=== PATIENT | female | born 1935 | race Two or more races ===

== ENCOUNTER 2022-06-16 17:33 | Emergency (ER) | payer MEDICARE, OTHER ==
[~2022-06-16] VITALS: Ht 152.4 cm; Wt 65.8 kg
[2022-06-16] MEDS ORDERED: OMEP20 PO (18:13)
[2022-06-16] MEDS ORDERED: AMLO2.5T29 PO (18:13)
[2022-06-16] MEDS ORDERED: ASPI-1450 PO (18:13)
[2022-06-16] MEDS ORDERED: LINA5TAB PO (18:13)
[2022-06-16] MEDS ORDERED: OMEG10005 PO (18:13)
[2022-06-16] MEDS ORDERED: ATOR10TA PO (18:13)
[2022-06-16] MEDS ORDERED: VALS40TA4 PO (18:13)
[2022-06-16] MEDS ORDERED: LORA-1370 PO (18:13)
[2022-06-16] MEDS ORDERED: DAPA5TAB PO (18:13)
[2022-06-16 18:42] LABS: BASOPHILS % (AUTO) 0.8 % (0.0-2.0); HEMATOCRIT 37.1 % (36-46); HEMOGLOBIN 12.2 g/dL (12.0-16.0); LYMPHOCYTES # (AUTO) 1.9 K/uL (1.0-4.8); LYMPHOCYTES % (AUTO) 23.7 % (22.0-44.0); MEAN CORPUSCULAR HEMOGLOBIN 28.1 pg (26.0-34.0); MEAN CORPUSCULAR VOLUME 85 fL (80-100); MONOCYTES # (AUTO) 0.5 K/uL (0.1-1.0); MONOCYTES % (AUTO) 6.4 % (2.0-9.0); NEUTROPHILS # (AUTO) 5.4 K/uL (1.8-7.7); NEUTROPHILS % (AUTO) 68.1 % (40.0-70.0); PLATELET COUNT (AUTO) 202 K/uL (150-450); RED BLOOD CELL COUNT(AUTO) 4.35 MIL/uL (4.00-5.20); RED CELL DISTRIBUTION WIDTH 14.2 % (11.5-14.5)
[2022-06-16 18:47] LABS: CALCIUM, TOTAL 9.4 mg/dL (8.8-10.5); CREATININE 1.9 mg/dL (0.60-1.30); POTASSIUM 4.4 mmol/L (3.5-5.1)
[2022-06-16 19:11] LABS: ALBUMIN 3.8 g/dL (3.4-5.0); BILIRUBIN,TOTAL 0.3 mg/dL (0.1-1.0); TOTAL PROTEIN, SERUM 8.4 g/dL (6.4-8.2)
[2022-06-16 19:32] VITALS: BP 160/66
== END 2022-06-16 22:01 | disposition home or self-care (01) ==
LOC: EMS 17:34
DX: R07.9 Chest pain, unspecified (principal); E78.5 Hyperlipidemia, unspecified; E11.9 Type 2 diabetes mellitus without complications; I10 Essential (primary) hypertension
CPT/HCPCS: 71045; 80053; 82550; 83880; 84484; 85025; 93005; 99285; 36415-L1; 36415-TC